=== PATIENT | female | born 1995 | race Two or more races ===

== ENCOUNTER → 2019-02-13 | Outpatient (REF) | payer OTHER | LOC: M SFHCLERA 18:42 | PROVIDERS: ATTEND Nurse Practitioner Family | DX: J02.9 Acute pharyngitis, unspecified (principal) ==

== ENCOUNTER 2019-07-05 18:44 | Emergency (ER) | payer OTHER ==
[~2019-07-05] VITALS: Ht 172.7 cm; Wt 93.1 kg
[2019-07-05] MEDS ORDERED: CETI10CH PO (18:57)
[2019-07-05] MEDS ORDERED: IBUP200C25 PO (18:57)
[2019-07-05] MEDS ORDERED: ACETAMINOPHEN 500 MG TAB PO ONE (20:45)
[2019-07-05] MEDS ORDERED: PENI500T PO (20:45)
[2019-07-05] MEDS ORDERED: PENICILLIN V POTASSIUM 500 MG TAB PO ONE (20:45)
[2019-07-05 20:52] VITALS: BP 132/72
== END 2019-07-05 21:13 | disposition home or self-care (01) ==
LOC: M ED 18:44
DX: J02.0 Streptococcal pharyngitis (principal)

== ENCOUNTER 2020-01-19 15:56 | Emergency (ER) | payer OTHER ==
[~2020-01-19] VITALS: Ht 172.7 cm; Wt 94.8 kg
[~2020-01-19 15:56] MED LIST: CETI10CH PO; IBUP200C25 PO; PENI500T PO
[2020-01-19 16:42] LABS: APPEARANCE, URINE CLEAR (CLEAR); BACTERIA, URINE AUTO NEGATIVE (NEGATIVE); BILIRUBIN, URINE AUTO NEGATIVE (NEGATIVE); BLOOD, URINE BLOOD NEGATIVE (NEGATIVE); COLOR, URINE YELLOW (YELLOW); GLUCOSE, URINE (UA) AUTO NEGATIVE (NEGATIVE); KETONE, URINE AUTO NEGATIVE (NEGATIVE); LEUKOCYTE ESTERASE, URINE AUTO NEGATIVE (NEGATIVE); MUCUS, URINE SMALL (NEGATIVE); NITRITE, URINE AUTO NEGATIVE (NEGATIVE); PROTEIN, URINE AUTO NEGATIVE (NEGATIVE); RBC, URINE AUTO 1 /HPF (0-3); SQUAMOUS EPITHELIAL CELL UR AU 2 /HPF (0-6); UROBILINOGEN, URINE AUTO 0.2 mg/dL (0.0-2.0); WBC, URINE AUTO 1 /HPF (0-3)
--- NOTE | 2020-01-19 17:23 | REPVR ---
PROCEDURE INFORMATION: Exam: US , Transvaginal and transabdominal Exam date and time: 01/19/2020 5:12 PM Age: 24 years old Clinical indication: Other: Low back pain; Gestational age or lmp: 4; ; Additional info: Cramping, low back pain TECHNIQUE: Imaging protocol: Real-time transvaginal and transabdominal obstetrical ultrasound of the maternal pelvis and a first trimester with image documentation. Transvaginal imaging was used for better evaluation of the fetus and adnexa. COMPARISON: No relevant prior studies available. FINDINGS: Gestation: No gestational sac or pole demonstrated. BIOMETRY: Gestational age (AUA): 4 weeks 1 day based on LMP of 12/21/2019. MATERNAL: Uterus: Uterus measures 9.7 x 5.2 x 6.4 cm. Endometrial echo complex measures 1.5 cm. Right adnexa: 2.8 x 2.6 x 2.8 cm cyst likely functional. Otherwise unremarkable. IMPRESSION: Empty uterus in a patient who is reportedly . Findings may indicate very early IUP prior to visualization of a gestational sac or fetus. Correlation with serial beta-hCG levels and follow ultrasound recommended in order to exclude ectopic verses very early or early failure. Electronically signed by: Aurelio Calles On 01/19/2020 17:23:03 PM
[2020-01-19 17:40] VITALS: BP 130/80
== END 2020-01-19 17:45 | disposition home or self-care (01) ==
LOC: M ED 15:56
DX: Z32.01 Encounter for pregnancy test, result positive (principal); O34.90 Maternal care for abnormality of pelvic organ, unspecified, unspecified trimester; O26.899 Other specified pregnancy related conditions, unspecified trimester

== ENCOUNTER 2020-03-30 12:42 | Emergency (ER) | payer OTHER ==
[~2020-03-30] VITALS: Ht 172.7 cm; Wt 99.4 kg
[2020-03-30] MEDS ORDERED: PREN1CHW6 PO (12:54)
[2020-03-30 13:13] LABS: BASO % 0.4 % (0.0-1.0); EOS # 0.1 10^3/uL (0.0-0.5); EOS % 0.9 % (0.0-3.0); HEMATOCRIT 39.1 % (36.0-47.0); HEMOGLOBIN 12.6 g/dl (12.0-15.5); LYMPH # 1.9 10^3/uL (1.5-5.0); LYMPH % 26.9 % (24.0-44.0); MEAN CORPUSCULAR HEMOGLOBIN 31.1 pg (27.0-33.0); MEAN CORPUSCULAR HGB CONC 32.2 g/dl (32.0-36.5); MEAN CORPUSCULAR VOLUME 96.5 fl (80.0-96.0); MONO # 0.5 10^3/uL (0.0-0.8); MONO % 6.4 % (0.0-5.0); NEUTROPHILS # 4.6 10^3/uL (1.5-8.5); NEUTROPHILS % 65.1 % (36.0-66.0); PLATELET COUNT, AUTOMATED 145 10^3/uL (150-450); RED BLOOD COUNT 4.05 10^6/uL (4.00-5.40)
[2020-03-30 13:46] LABS: ALBUMIN 3.3 GM/DL (3.2-5.2); ALT/SGPT 12 U/L (12-78); BILIRUBIN,DIRECT < 0.1 MG/DL (0.0-0.2); BILIRUBIN,TOTAL 0.3 MG/DL (0.2-1.0); LIPASE 115 U/L (73-393); TOTAL PROTEIN 6.7 GM/DL (6.4-8.2)
[2020-03-30 15:52] VITALS: BP 135/76
== END 2020-03-30 16:00 | disposition home or self-care (01) ==
LOC: M ED 12:42
DX: O26.892 Other specified pregnancy related conditions, second trimester (principal); Z3A.00 Weeks of gestation of pregnancy not specified

== ENCOUNTER 2020-09-13 07:00 | Inpatient (IN) | payer OTHER ==
[2020-09-13] VITALS (8 sets, daily range): BP systolic 138–182; BP diastolic 79–100
[~2020-09-13] VITALS: Ht 172.7 cm; Wt 115.7 kg
[~2020-09-13 07:00] MED LIST changes: +PREN1CHW6 PO
[2020-09-13] MEDS ORDERED: VALT500T PO (08:16)
--- NOTE | 2020-09-13 09:09 | HPEPDOC ---
Obstetrical History & Physical General Date of Admission Sep 13, 2020 at 07:00 History of Present Illness Rae is a 25yo at 38+1wks presenting for IOL for CHTN (no meds). She rep orts no ctx's. Denies VB, LOF, or DFM. Denies KIRBY, chest pain, SOB, visual changes, or RUQ pain. She believes that this baby is slightly smaller than her last one. Chief Complaint: Induction of labor Information Provided By: Patient Care Care: Good Care Dating Final EDC: Sep 26, 2020 Final EDC for Daily Update: Sep 26, 2020 Final EDC by: LMP (c/w 10w3d U/S on [id number]) EGA at Admission: 38 (+1) Antepartum Course Diagnos(e)s Chronic HTN (no meds) HSVII History of previous c/s for arrest of dilation at 5cm after 3 day IOL for polyhydramnios at 40wks in 2018 Varicella NI Obesity complicating (NOB BMI 32) Excessive weight gain in (total of 43lbs) Height (inches): 68 Pre- weight (lbs.): 211 Admission Weight (lbs.): 254 Change in Weight (lbs.): 43 Past Medical History Past Obstetrical History : Past Obstetrical History: Multigravida Type of Delivery: Ceserean section [employer] History: Herpes simplex virus(HSV) Past Medical History Medical History CHTN (no meds) HSV II Obesity Surgical History: section Family History Significant Family History: Diabetes (Mother. MGM, MGF), Hypertension (MGM, MGF) Social History Marital Status: Family situation: Spouse/partner home Psychosocial History: No pertinent psych hx * Smoker: non-smoker Alcohol: Denies Drugs: denies Abuse Violence Screening Have you been hit/kicked/slapp: No Have you been sexually assault: No Imunizations Tdap status: declined Influenza Status: declined Allergies Coded Allergies: No Known Allergies (Unverified , 07/05/19) Medications Scheduled Valacyclovir HCl (Valtrex) 500 Mg Tablet, 500 MG PO DAILY Miscellaneous Medications Vit37/Iron/Folic Acid (Prenata Chewable Tablet) 1 Each Tab.chew, 1 CHW PO Physical Examination Physical Examination GENERAL: Alert and oriented times three. ABDOMEN: Gravid and non-tender to touch. FETUS: Is vertex (VTX) by sterile vaginal examination (SVE), fetus is vertex (VTX) by Atif. CARDS: well-perfused LUNGS: No exaggerated respiratory effort appreciated EXTREMITIES: No edema. : NEFG, SVE ft/thick/high, no abnml vaginal discharge, no VB, no herpetic lesions seen Laboratory Data 24H LABS Laboratory Tests 2 09/13/20 07:25: Serology Scanned Report Hepatitis B Testing Urine Culture: No Growth Pertinent Laboratoy Data Blood Type: O+ RBC Antibody Screen: Negative HIV: Negative Hepatitis B: Negative Rapid Plasma Reagin: Nonreactive Rubella: Immune Varicella: Nonreactive Chlamydia/Gonorrhea: Negative Group B Streptococcus: Positive Quad Screen Test: Declined Cystic Fibrosis: Negative Glucose Tolerance Test: 89 Anatomy Ultrasound Placenta Location: Anterior Normal Anatomy: Yes ( ) Placenta Previa: No Other Ultrasounds [id number] - EFW 54th percentile [id number] - EFW 59th percentile PADILLA 13.83 Vaginal Examination Dilation: Fingertip Effacement: 30% Station: -3 Cervical Consistency: Medium Cervical Position: Posterior Presentation: Cephalic presentation Assessment Heart Rate (FHR): 145 Variability: Moderate Accelerations: Positive Decelerations: None Tocometer Contractions: No Multi-drug resistant Organism: No history of MDRO Assessment/Plan Assessment Rae is a 25yo at 38+1wks presenting for IOL for CHTN (no meds). Patient noted to have a previous section. SVE unfavorable at ft/thick/high. GBS positive. 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 Mild-ranging BP upon admission, asymptomatic for preeclampsia. Plan Rae was counseled regarding IOL options being limited to pitocin and cervical ripening balloon. Patient counseled that unfavorable cervix does not necessarily mean we cannot proceed with TOLAC but that it would potentially be a long process. We discussed success of TOLAC is improved with presentation in spontaneous labor rather than IOL. Patient was offered to proceed with TOLAC vs ERLTCS. Patient elected to decline TOLAC and desires to proceed with ERLTCS stating that she does not "want to force anything". She was counseled on r/b/a/i of ERLTCS, acknowledged understanding and desires to proceed. Admit and orient. Manager Organizational and consent. Diet: NPO Group B Streptococcus (GBS) positive. Labs and intravenous (IV) per unit protocol. Counseled on Pitocin and induction of labor in setting of TOLAC - patient declines desiring ERLTCS Lactated Ringers (LR): Bolus 500 mL, then at 125 mL/hr. Of note, patient ate breakfast at 0600 this morning. Will await anesthesia recommendations on timing of ERLTCS later today. ELIE CARMICHAEL DO Sep 13, 2020 09:09
[2020-09-13 09:12] LABS: HEMATOCRIT 38.8 % (36.0-47.0); HEMOGLOBIN 12.9 g/dl (12.0-15.5); MEAN CORPUSCULAR HEMOGLOBIN 33.2 pg (27.0-33.0); MEAN CORPUSCULAR HGB CONC 33.2 g/dl (32.0-36.5); PLATELET COUNT, AUTOMATED 110 10^3/uL (150-450); RED BLOOD COUNT 3.88 10^6/uL (4.00-5.40); WHITE BLOOD COUNT 6.5 10^3/uL (4.0-10.0)
[2020-09-13 11:46] LABS: ALBUMIN 2.8 GM/DL (3.2-5.2); ALT/SGPT 16 U/L (12-78); BILIRUBIN,TOTAL 0.4 MG/DL (0.2-1.0); BLOOD UREA NITROGEN 6 MG/DL (7-18); CALCIUM LEVEL 8.8 MG/DL (8.5-10.1); CARBON DIOXIDE LEVEL 24 MEQ/L (21-32); CHLORIDE LEVEL 108 MEQ/L (98-107); CREATININE FOR GFR 0.54 MG/DL (0.55-1.30); GLOMERULAR FILTRATION RATE > 60.0 (>60); GLUCOSE, FASTING 101 MG/DL (70-100); POTASSIUM SERUM 3.7 MEQ/L (3.5-5.1); SODIUM LEVEL 140 MEQ/L (136-145); TOTAL PROTEIN 6.1 GM/DL (6.4-8.2)
[2020-09-13] MEDS ORDERED: ePHEDrine SULFATE 25 MG/5 ML(5MG/ML) SYRINGE As Ordered ONE (14:57)
[2020-09-13] MEDS ORDERED: MORPHINE PRES-FREE INJ 10 MG/10 ML VIAL (J2274) As Ordered ONE (14:57)
[2020-09-13] MEDS ORDERED: PHENYLephrine 500MCG 5ML (100MCG/ML) SYRINGE As Ordered ONE (14:57)
[2020-09-13] MEDS ORDERED: OXYTOCIN INJ 10 UNITS/ML VIAL (J2590) As Ordered ONE (14:59)
[2020-09-13] MEDS ORDERED: METOCLOPRAMIDE INJ 10MG/2ML VIAL (J2765 PER 1) As Ordered ONE (15:24)
[2020-09-13] MEDS ORDERED: ONDANSETRON 4MG/2ML VIAL As Ordered ONE (15:24)
--- NOTE | 2020-09-13 16:19 | ROOPDOC ---
[facility] Report Of Operation Report of Operation DATE OF PROCEDURE: 09/13/20 PREPROCEDURE DIAGNOSES: 1. History of previous section 2. 38 weeks gestation 3. Chronic hypertension complicating 4. Obesity complicating POSTPROCEDURE DIAGNOSES: 1. History of previous section 2. 38 weeks gestation 3. Chronic hypertension complicating 4. Obesity complicating 5. Adhesions 6. Uterine fibroid PROCEDURE: 1. Elective repeat low transverse section 2. Adhesiolysis SURGEON: Natalee Castelan DO PRICING SUPERVISOR: Diego Vieyra DO ANESTHESIA: Spinal ESTIMATED BLOOD LOSS: Approximately 500 mL. FLUIDS: 1000ml LR URINE OUTPUT: 50ml COMPLICATIONS: None FINDINGS: Female infant in cephalic presentation with APGARS 9/9 weighing 3230g. Clear fluid on amniotomy. Bandolier cord appreciated. Normal-appearing uterus with 1.5cm anterior subserosal fibroid, bilateral ovaries and fallopian tubes. Dense adhesions of the fascia to the rectus muscle and peritoneum. PROCEDURE NOTE: The risks, benefits, indications and alternatives of the procedure were reviewed with the patient and informed consent was obtained. The patient was taken to the operating room where spinal anesthesia was obtained without difficulty and found to be adequate. She was then prepped and draped in the normal, sterile fashion in the dorsal supine position with a leftward tilt. A Pfannenstiel skin incision was then made with the scalpel and carried through to the underlying layer of fascia with the Bovie. The fascia was incised in the midline and the incision extended laterally with the Solis scissors. The superior aspect of the fascial incision was grasped with the Brice clamps, elevated, and the underlying rectus muscles dissected off with the Bovie. Extensive adhesive disease of the fascia was encountered requiring extensive careful dissection wi th the scalpel. Spontaneous entry into the peritoneum was appreciated during this dissection. Attention was then turned to the inferior aspect of this incision, which, in a similar fashion, was grasped, tented up with the Brice clamps and the rectus muscle dissected off aided with Solis scissors. Rectus muscles were then at the midline and the spontaneous opening of the peritoneum extended. The Mobius self-retaining retractor was then inserted. The vesicouterine peritoneum was then identified and entered sharply with the scalpel. This incision was then extended laterally and the bladder flap created digitally. Next, the lower uterine segment was incised in a transverse fashion with the scalpel. The uterine incision was then extended manually. The amniotic sac was artificially ruptured, productive of clear fluid. was found to be in cephalic presentation. The infants head delivered atraumatically in the ROT position through the hysterotomy without difficulty. A bandoleir cord was appreciated that was manually reduced. IV pitocin bolus was initiated. The was dried on the surgical field with vigorous spontaneous cry and the cord doubly clamped and cut after 30 seconds of delayed cord clamping. The was handed off to the waiting pediatricians. A cord blood sample was obtained. The placenta was then removed spontaneously with gentle traction on the umbili alyssa cord. The uterus was cleared of all clots and debris. The uterine incision was repaired with 0-monocryl in a running, locked fashion. A second layer of 0- monocryl was then used to embricate the hysterotomy in a horizontal fashion to achieve hemostasis. The fascia was reapproximated with 0-vicryl in a running fashion. The subcutaneous layer was closed with 3-0 vicryl in an interrupted fashion. The skin was then closed with 4-0 monocryl in a subcuticular fashion. The incision was then dressed with steri-strips and a pressure dressing applied. At the completion of the case, bimanual exam performed with good uterine tone and minimal vaginal bleeding. The patient tolerated the procedure well. Sponge, lap and needle counts were correct times three. The patient was taken to the recovery room in stable condition. NATALEE CASTELAN DO Sep 13, 2020 15:11
[2020-09-13] MEDS ORDERED: LR 1,000 ML IV SCH (17:00)
[2020-09-13] MEDS ORDERED: NALBUPHINE HCL 10 MG/ML AMP (J2300) IV PRN ×2 (17:00)
[2020-09-13] MEDS ORDERED: ONDANSETRON 4MG/2ML VIAL IV PRN ×2 (17:00)
[2020-09-13] MEDS ORDERED: diphenhydrAMINE 50MG/ML VIAL (J1200) IV PRN (17:00)
[2020-09-13] MEDS ORDERED: oxyCODONE 5MG TAB PO PRN (17:00)
[2020-09-13] MEDS ORDERED: METOCLOPRAMIDE INJ 10MG/2ML VIAL (J2765 PER 1) IV PRN (17:00)
[2020-09-13] MEDS ORDERED: NALOXONE INJ 0.4MG/1ML VIAL (J2310 PER 1MG) IV PRN ×2 (17:00)
[2020-09-13] MEDS ORDERED: fentaNYL 100 MCG/2 ML INJECTION (J3010) IV PRN (17:00)
[2020-09-13] MEDS: NIFEdipine 30 MG XL TAB PO SCH (17:19)
[2020-09-13] MEDS ORDERED: LABETALOL 100MG TAB PO ONE (23:10)
[2020-09-14] VITALS (45 sets, daily range): BP systolic 114–198; BP diastolic 59–108
[2020-09-14 00:12] LABS: ALBUMIN 2.5 GM/DL (3.2-5.2); ALT/SGPT 16 U/L (12-78); BILIRUBIN,TOTAL 0.6 MG/DL (0.2-1.0); BLOOD UREA NITROGEN 6 MG/DL (7-18); CALCIUM LEVEL 8.3 MG/DL (8.5-10.1); CARBON DIOXIDE LEVEL 26 MEQ/L (21-32); CHLORIDE LEVEL 106 MEQ/L (98-107); CREATININE FOR GFR 0.46 MG/DL (0.55-1.30); GLOMERULAR FILTRATION RATE > 60.0 (>60); GLUCOSE, FASTING 103 MG/DL (70-100); POTASSIUM SERUM 3.9 MEQ/L (3.5-5.1); SODIUM LEVEL 139 MEQ/L (136-145); TOTAL PROTEIN 5.8 GM/DL (6.4-8.2)
[2020-09-14 00:30] LABS: HEMATOCRIT 37.8 % (36.0-47.0); HEMOGLOBIN 12.6 g/dl (12.0-15.5); MEAN CORPUSCULAR HEMOGLOBIN 33.4 pg (27.0-33.0); MEAN CORPUSCULAR HGB CONC 33.3 g/dl (32.0-36.5); MEAN CORPUSCULAR VOLUME 100.3 fl (80.0-96.0); PLATELET COUNT, AUTOMATED 115 10^3/uL (150-450); RED BLOOD COUNT 3.77 10^6/uL (4.00-5.40)
[2020-09-14] MEDS ORDERED: MAGNESIUM *L&D* 4GM/100ML BAG (40MG/ML) IV ONE (00:45)
[2020-09-14] MEDS ORDERED: MAGNESIUM SULFATE 4% INJ 20GM/500ML (40MG/ML) As Ordered ONE (01:13)
[2020-09-14] MEDS: MAG Sulf (OBGYN) 20GM/500ML 20,000 MG in IV 1 EA IV SCH ×2 (01:28→18:15)
[2020-09-14 05:55] LABS: HEMATOCRIT 39.4 % (36.0-47.0); HEMOGLOBIN 13.3 g/dl (12.0-15.5); MEAN CORPUSCULAR HGB CONC 33.8 g/dl (32.0-36.5); MEAN CORPUSCULAR VOLUME 97.8 fl (80.0-96.0); PLATELET COUNT, AUTOMATED 113 10^3/uL (150-450); RED BLOOD COUNT 4.03 10^6/uL (4.00-5.40); WHITE BLOOD COUNT 11.7 10^3/uL (4.0-10.0)
--- NOTE | 2020-09-14 08:28 | IPNPDOC ---
Progress Note Date of Service: Sep 14, 2020 Progress Note Ms. Marina is a 25 yo G2 now P2 who is POD#1 s/p uncomplicated RLTCS yesterday afternoon at 38+1 weeks gestation for CHTN. Overnight she developed persistently severe hypertension and she was started on an IV magnesium drip for seizure prophylaxis. She has also been started on daily nifedipine. Current diagnosis is chronic hypertension with super imposed pre eclampsia with severe features. Rae reports feeling well this AM. She is tolerating clear liquids without issues. Her pain is well controlled. She denies any nausea or vomiting. Vitals - Normal to mostly mildly elevated blood pressures, afebrile, non tachycardic General - AAOX3, sitting up in bed, pleasant and conversant, NAD Abdomen - Fundus firm at U-2. No fundal tenderness, Bandage in place over incision. Clean and dry with minimal strikethrough. No tenderness to palpation. Extremities - Mild edema in lower extremities UO - Excellent via reddy catheter Labs: Cr 0.46, platelets 113 (this appears somewhat chronic), H/H normal, AST/ALT unremarkable Plan to continue IV mag drip for 24 hours (until ~0100 tomorrow morning). Continue routine post op care. Can consider regular diet later today. Will treat blood pressures as needed. All questions answered. Yaakov VS, I&O, 24H, Xavier Vital Signs/I&O Vital Signs Date Time Temp Pulse Resp B/P (MAP) Pulse Ox O2 Delivery O2 Flow Rate FiO2 09/14/20 07:18 98.0 81 121/62 (81) 09/13/20 23:05 18 98 I&O- Last 24 Hours up to 6 AM 09/14/20 06:00 Intake Total 1467 ml Output Total 3725 ml Balance -2258 ml Laboratory Data 24H LABS Laboratory Tests 2 09/13/20 08:55: Anion Gap 8, Glomerular Filtration Rate > 60.0, Calcium Level 8.8, Total Bilirubin 0.4, Aspartate Amino Transf (AST/SGOT) 17, Alanine Aminotransferase (ALT/SGPT) 16, Alkaline Phosphatase 122H, Total Protein 6.1L, Albumin 2.8L, Albumin/Globulin Ratio 0.8L, Syphilis Serology NONREACTIVE 09/13/20 08:56: Nucleated Red Blood Cells % (auto) 0.0 09/13/20 23:22: Anion Gap 7L, Glomerular Filtration Rate > 60.0, Calcium Level 8.3L, Total Bilirubin 0.6, Aspartate Amino Transf (AST/SGOT) 20, Alanine Aminotransferase (ALT/SGPT) 16, Alkaline Phosphatase 116, Total Protein 5.8L, Albumin 2.5L, Albumin/Globulin Ratio 0.8L, Nucleated Red Blood Cells % (auto) 0.0 09/14/20 05:38: Nucleated Red Blood Cells % (auto) 0.0, Magnesium Level 3.7H CBC/BMP Laboratory Tests 09/13/20 08:55 09/13/20 08:56 09/13/20 23:22 09/14/20 05:38 Microbiology Microbiology 09/13/20 Respiratory Virus Panel (PCR) (PETRA) - Final, Complete LAMONT POOL DO Sep 14, 2020 08:28
[2020-09-14] MEDS: NIFEdipine 30 MG XL TAB PO SCH (08:57)
[2020-09-15] VITALS (32 sets, daily range): BP systolic 128–174; BP diastolic 61–100
[2020-09-15] MEDS ORDERED: NIFEdipine 30 MG XL TAB PO STA (06:36)
[2020-09-15] MEDS ORDERED: LABETALOL 100MG/20ML VIAL IV STA ×2 (06:46→18:33)
[2020-09-15] MEDS ORDERED: MOM 30ML SUSPENSION UDC PO PRN (09:00)
[2020-09-15] MEDS ORDERED: MEASLES,MUMPS,RUBELLA VACCINE INJ (MMR-II) (90707) SC SCH (09:00)
[2020-09-15] MEDS ORDERED: RHOGAM 300 MCG (1500 IU) INJ (J2790) IM SCH (09:00)
[2020-09-15] MEDS ORDERED: PROMETHAZINE 25 MG TAB PO PRN (09:00)
[2020-09-15] MEDS ORDERED: SIMETHICONE 80MG CHEW TAB PO PRN (09:00)
[2020-09-15] MEDS: PRENATAL VITAMINS CHEWABLE TABLET PO SCH (09:21)
[2020-09-15] MEDS: NIFEdipine 30 MG XL TAB PO SCH (09:22)
[2020-09-15] MEDS: PERCOCET 5MG/325MG TAB PO PRN ×3 (09:23→23:59)
[2020-09-15] MEDS: DOCUSATE SODIUM 100MG CAPSULE PO SCH ×2 (09:23→20:45)
--- NOTE | 2020-09-15 11:05 | IPNPDOC ---
Progress Note Date of Service: Sep 15, 2020 Day#: 2 Progress Note Ms. Marina is a 25 yo G2 now P2 who is POD#2 s/p uncomplicated RLTCS at 38+1 we eks gestation for CHTN. After delivery she developed superimposed pre-eclampsia with severe features and is now post-24h magnesium therapy (off at 0100 [id number]). She did require 20mg IV labetlol for blood pressure control this morning and her adalat was increased to 60mg XR per day. She is now normotensive to mild range. She denied n/v/d, cp, sob, rodriguez, visual changes, abd pain, f/c, heavy vb, dc, urinary sx. She is tolerating PO, ambulating, urinating, and passing flatus without issue. Her pain is well controlled. Vitals - Normal to mostly mildly elevated blood pressures, afebrile, non tachycardic General - AAOX3, sitting up in bed, pleasant and conversant, NAD Abdomen - Fundus firm at U-2. No fundal tenderness, Bandage in place over incision. Clean and dry with minimal strikethrough. No tenderness to palpation. Extremities - Mild edema in lower extremities UO - Excellent via reddy catheter Labs: Cr 0.46, platelets 113 (this appears somewhat chronic), H/H normal, AST/ALT unremarkable Plan to continue observation of BPs for a minimum of 24h post-magnesium or longer until stabilized at normotensive to mild range. Will given IV anti-hypertensives as indicated for persistent severe range BPs. Tox labs were normal, will repeat if BP resistant to control or develops new symptoms. Continue with nifedipine XR 60mg/d qAM. Continue routine post op care. Continue regular diet. All questions answered. VS, I&O, 24H, Fishbone Vital Signs/I&O Vital Signs Date Time Temp Pulse Resp B/P (MAP) Pulse Ox O2 Delivery O2 Flow Rate FiO2 09/15/20 10:00 98.6 82 18 131/75 (93) 100 09/14/20 22:14 Room Air I&O- Last 24 Hours up to 6 AM 09/15/20 06:00 Intake Total 9554 ml Output Total 72927 ml Balance -1571 ml Laboratory Data Microbiology Microbiology 09/13/20 Respiratory Virus Panel (PCR) (PETRA) - Final, Complete JULIETH PENG DO Sep 15, 2020 11:05
[2020-09-15] MEDS: IBUPROFEN 800 MG TAB PO SCH ×2 (14:29→20:46)
[2020-09-16] VITALS (9 sets, daily range): BP systolic 140–172; BP diastolic 81–95
[2020-09-16] MEDS: PERCOCET 5MG/325MG TAB PO PRN (04:19)
[2020-09-16] MEDS: IBUPROFEN 800 MG TAB PO SCH ×3 (05:20→21:16)
[2020-09-16] MEDS: NIFEdipine 30 MG XL TAB PO SCH (06:30)
--- NOTE | 2020-09-16 06:58 | IPNPDOC ---
Progress Note Date of Service: Sep 16, 2020 Day#: 3 Progress Note Ms. Marina is a 25 yo G2 now P2 who is POD#3 s/p uncomplicated RLTCS at 38+1 we eks gestation for CHTN. After delivery she developed superimposed pre-eclampsia with severe features and is now post-24h magnesium therapy (off at 0100 [id number]). She did require 20mg IV labetlol for blood pressure control overnight and her adalat was increased to 60mg XR per day yesterday morning. She is now normotensive to mild range. She denied n/v/d, cp, sob, rodriguez, visual changes, abd pain, f/c, heavy vb, dc, urinary sx. She is tolerating PO, ambulating, urinating, and passing flatus without issue. Her pain is well controlled. Vitals - Normal to mostly mildly elevated blood pressures, afebrile, non tachycardic General - AAOX3, sitting up in bed, pleasant and conversant, NAD Abdomen - Fundus firm at U-2. No fundal tenderness, Bandage in place over incision. Clean and dry with minimal strikethrough. No tenderness to palpation. Extremities - Mild edema in lower extremities, reflexes 3/4, no clonus Labs: Cr 0.46, platelets 113 (this appears somewhat chronic), H/H normal, AST/ALT unremarkable Plan to continue observation of BPs throughout the day today to ensure no need for additional PO medications before discharge. Will given IV anti-hypertensives as indicated for persistent severe range BPs. Tox labs were normal, will repeat if BP resistant to control or develops new symptoms. Continue with nifedipine XR 60mg/d qAM. Continue routine post op care. Continue regular diet. All questions answered. Educated on routine post-op and return precautions and activity limitations Plan for follow up in 24h for BP check after discharge, educated on the si/sx of pre-eclampsia as return precautions Unsure contraception, thinks may want mirena, will discuss at follow up apt VS, I&O, 24H, Fishbone Vital Signs/I&O Vital Signs Date Time Temp Pulse Resp B/P (MAP) Pulse Ox O2 Delivery O2 Flow Rate FiO2 09/16/20 06:30 158/80 09/16/20 06:00 98.4 89 16 99 Room Air I&O- Last 24 Hours up to 6 AM 09/16/20 05:59 Intake Total 400 ml Balance 400 ml Laboratory Data Microbiology Microbiology 09/13/20 Respiratory Virus Panel (PCR) ([facility]RA) - Final, Complete JULIETH PENG DO Sep 16, 2020 06:58
--- NOTE | 2020-09-16 07:02 | OBDS ---
[facility] Obstetrical Discharge Sum. A/P, Post Course List any complications Ms. Marina is a 25 yo G2 now P2 who underwent uncomplicated repeat at 38+1 weeks gestation for chronic hypertension. After delivery she developed superimposed pre-eclampsia with severe features and received 24 hours of magnesium therapy. She did require some IV antihypertensive medications and untimely was put on nifedipine and labetalol for prolonged blood pressure control. She had normal pre-eclampsia labs. On discharge her blood pressures were normotensive to mild range. Her pain was w ell controlled and she denied any symptoms of pre-eclampsia. Continue with nifedipine XR 60mg/d each morning as well as BID Labetalol. She will need to pick these meds up at the [facility] on 17Sep2020 (day of discharge). She will then come into the [facility] office on 19Sep2020 () for a walk in blood pressure check. All questions answered. Educated on routine post-op and return precautions and activity limitations. Educated on the symptoms of pre-eclampsia as return precautions. Unsure contraception, thinks may want mirena, will discuss at follow up appointment. JULIETH PENG DO Sep 16, 2020 07:02 LAMONT POOL DO Sep 17, 2020 07:20
[2020-09-16] MEDS: DOCUSATE SODIUM 100MG CAPSULE PO SCH ×2 (07:42→21:15)
[2020-09-16] MEDS: PRENATAL VITAMINS CHEWABLE TABLET PO SCH (07:42)
[2020-09-16] MEDS ORDERED: LABETALOL 200 MG TAB PO ONE (11:30)
[2020-09-16] MEDS: LABETALOL 200 MG TAB PO SCH (21:16)
[2020-09-17 02:00] VITALS: BP 136/81
[2020-09-17] MEDS: IBUPROFEN 800 MG TAB PO SCH (05:57)
[2020-09-17 06:00] VITALS: BP 145/77
[2020-09-17 07:55] VITALS: BP 165/82
[2020-09-17] MEDS: DOCUSATE SODIUM 100MG CAPSULE PO SCH (07:58)
[2020-09-17] MEDS: PRENATAL VITAMINS CHEWABLE TABLET PO SCH (07:58)
[2020-09-17] MEDS: LABETALOL 200 MG TAB PO SCH (07:59)
[2020-09-17 08:00] VITALS: BP 165/82
[2020-09-17] MEDS: NIFEdipine 30 MG XL TAB PO SCH (08:00)
== END 2020-09-17 12:15 | disposition home or self-care (01) | DRG 773 ==
LOC: M LDI 07:00 → M OBS 18:22 → M LDI 09-14 01:10 → M OBS 09-15 01:50
PROC: 10D00Z1 Extraction of Products of Conception, Low, Open Approach (ICD-10-PCS; principal; 2020-09-13 11:28)
DX: O14.14 Severe pre-eclampsia complicating childbirth (principal); O34.211 Maternal care for low transverse scar from previous cesarean delivery; Z37.0 Single live birth; Z3A.38 38 weeks gestation of pregnancy; E66.9 Obesity, unspecified; O99.214 Obesity complicating childbirth; Z68.32 Body mass index [BMI] 32.0-32.9, adult; O26.00 Excessive weight gain in pregnancy, unspecified trimester; O99.824 Streptococcus B carrier state complicating childbirth; D25.2 Subserosal leiomyoma of uterus; O34.10 Maternal care for benign tumor of corpus uteri, unspecified trimester

== ENCOUNTER 2020-12-30 10:40 | Emergency (ER) | payer OTHER ==
[~2020-12-30] VITALS: Ht 175.3 cm; Wt 100.3 kg
[~2020-12-30 10:40] MED LIST changes: +VALT500T PO
[2020-12-30 10:41] VITALS: BP 129/72
[2020-12-30 13:51] LABS: HEMATOCRIT 42.3 % (36.0-47.0); HEMOGLOBIN 13.9 g/dl (12.0-15.5); MEAN CORPUSCULAR HEMOGLOBIN 31.6 pg (27.0-33.0); MEAN CORPUSCULAR HGB CONC 32.9 g/dl (32.0-36.5); MEAN CORPUSCULAR VOLUME 96.1 fl (80.0-96.0); PLATELET COUNT, AUTOMATED 175 10^3/uL (150-450); WHITE BLOOD COUNT 4.8 10^3/uL (4.0-10.0)
--- NOTE | 2020-12-30 14:38 | REP ---
INDICATION: vag bleeding x 4 months. COMPARISON: None. TECHNIQUE: Transabdominal and transvaginal scanning performed. FINDINGS: Uterine dimensions are 8.3 x 4.5 x 5.9 cm. Endometrial echo is 4 mm in AP dimension and centrally placed. The bladder measures 7.0 x 6.8 x 8.8cm. The right ovary has dimensions of 4.4 x 2.4 x 3.1 cm. It's Doppler flow is normal with a resistive index of 0.51. The left ovary dimensions are 3.5 x 2.7 x 2.6 cm. It's Doppler flow was normal with resistive index of 0.56. There is no adnexal mass identified. There is a complex dominant follicle of the right ovary 1.7 x 1.2 x 1.3 cm. No free fluid is seen in the cul-de-sac. IMPRESSION: Complex dominant follicle right ovary maximum diameter 1.7 cm. Otherwise no mass or torsion. No free fluid. <Electronically signed by Ozzie Peterson > 12/30/20 [id number]
[2020-12-30 14:42] LABS: ATYPICAL LYMPH 11 % (0-5); BASOPHILS 1 % (0-1); EOSINOPHILS 3 % (0-3); LYMPHOCYTES 58 % (16-44); NEUTROPHILS 27 % (28-66)
[2020-12-30 14:43] LABS: PLATELET ESTIMATE NORMAL (NORMAL)
== END 2020-12-30 15:41 | disposition home or self-care (01) ==
LOC: M ED 10:40
DX: N93.8 Other specified abnormal uterine and vaginal bleeding (principal); N83.201 Unspecified ovarian cyst, right side; L60.0 Ingrowing nail; Z79.899 Other long term (current) drug therapy

== ENCOUNTER → 2022-12-15 | Outpatient (CLI) | payer OTHER | LOC: M RAD 08:31 | DX: R10.9 Unspecified abdominal pain (principal) ==

== ENCOUNTER 2023-10-10 17:17 | Emergency (ER) | payer OTHER ==
[2023-10-10] MEDS: IBUPROFEN 600MG TAB PO ONE (19:52)
[2023-10-10 19:57] VITALS: BP 159/82; TEMP 98.4; O2SAT 100
== END 2023-10-10 20:04 | disposition home or self-care (01) ==
LOC: M ED 17:17
DX: M54.50 Low back pain, unspecified (principal); V49.49XA Driver injured in collision with other motor vehicles in traffic accident, initial encounter; Y92.9 Unspecified place or not applicable; Y93.9 Activity, unspecified; Y99.9 Unspecified external cause status